=== PATIENT | female | born 1980 | race Caucasian/White ===

== ENCOUNTER 2017-03-28 00:52 | Emergency (ER) | payer OTHER ==
[2017-03-28 02:16] VITALS: BP 135/94
== END 2017-03-28 02:16 | disposition home or self-care (01) ==
LOC: ED 00:52
DX: M54.5 Low back pain (principal); Z88.1 Allergy status to other antibiotic agents

== ENCOUNTER 2017-08-29 05:19 | Emergency (ER) | payer OTHER ==
[2017-08-29 07:00] VITALS: BP 107/56
== END 2017-08-29 07:00 | disposition home or self-care (01) ==
LOC: ED 05:19
DX: J02.0 Streptococcal pharyngitis (principal); Z88.1 Allergy status to other antibiotic agents
CPT/HCPCS: J0696; J1100; J1885